=== PATIENT | male | born 2000 | race Caucasian/White ===

== ENCOUNTER 2023-08-30 19:08 | Inpatient (IN) ==
[2023-08-30] MEDS ORDERED: Famotidine IV 10 MG/ML 2 ml VIAL (20 mg) ONE (19:13)
[2023-08-30] MEDS ORDERED: EPINEPHrine Anaphylaxis SYR CERTADOSE SYR KIT ONE (19:13)
[2023-08-30] MEDS ORDERED: NS 0.9% 1000 ml BAG 1,000 ML IV ONE (19:20)
[2023-08-30] MEDS ORDERED: Ondansetron 4 mg VIAL 2 MG/ML 2 ml VIAL IV ONE (19:20)
[2023-08-30] MEDS ORDERED: Al Hydrox/Mg Hydrox/Simet LIQ 30 ML UDC PO ONE (19:50)
[2023-08-30] MEDS ORDERED: Pantoprazole VIAL 40 MG VIAL IV ONE (19:51)
[2023-08-30] MEDS ORDERED: Lorazepam PYXIS KEY PRN (20:21)
[2023-08-30] MEDS ORDERED: Dexamethasone IV 4 MG/ML VIAL 1 ml VIAL IV SLOW PU ONE (20:21)
[2023-08-30] MEDS ORDERED: EPINEPHrine Anaphylaxis SYR CERTADOSE SYR KIT IM ONE (20:21)
[2023-08-30] MEDS: LORazepam 2 mg VIAL 1 ml IV PUSH ONE ×2 (20:35→20:38)
[2023-08-30] MEDS ORDERED: Famotidine IV 10 MG/ML 2 ml VIAL (20 mg) IV SLOW PU ONE (21:30)
[2023-08-30] MEDS ORDERED: Albuterol 2.5mg/3 ml (0.083%) NEB.SOLN INH PRN (21:31)
[2023-08-30 21:51] LABS: ABS Basophils 0.1 10^3/uL (0.0-0.1); ABS Eosinophils 0.3 10^3/uL (0.0-0.5); ABS Lymphocytes 3.4 10^3/uL (1.0-4.8); ABS Monocytes 0.5 10^3/uL (0.0-1.1); ABS Neutrophils 5.6 10^3/uL (1.5-7.6); ABS Nucleated RBC 0.02 10^3/ul; Eosinophil % 3.5 %; Hematocrit 46.2 % (38-53); Hemoglobin 16.1 g/dL (13.2-16.3); Lymphocyte % 34.5 %; Mean Corpuscular Hemoglobin 30.4 pg (27-33); Mean Corpuscular Hgb Conc 34.8 g/dL (31-36); Mean Corpuscular Volume 87.4 fL (80-97); Mean Platelet Volume 10.4 fL (7.5-11.2); Nucleated Red Blood Cells % 0.2 %/100WBC (0.0-0.8); Platelet Count 320 10^3/uL (150-450); Red Blood Count 5.28 10^6/uL (4.06-5.63); Red Cell Distribution Width 12.9 % (12-17)
[2023-08-30 22:22] LABS: Potassium 3.2 mmol/L (3.5-5.0)
[2023-08-30 22:23] LABS: Albumin 5.4 g/dL (3.2-5.2); Albumin/Globulin Ratio 1.5 (1-3); Calcium 10.6 mg/dL (8.6-10.3); Creatinine, Serum 1.02 mg/dL (0.67-1.17); Globulin 3.5 g/dL (2-4); Magnesium 2.1 mg/dL (1.9-2.7); Total Bilirubin 0.8 mg/dL (0.2-1.0); Total Protein 8.9 g/dL (6.4-8.9); eGFR CKD-EPI 107.2 (>60)
[2023-08-30] MEDS ORDERED: Ondansetron ODT 4 mg TAB 4 MG TAB SL PRN (23:35)
[2023-08-31] MEDS ORDERED: Potassium EFFERVES 25 meq TAB PO ONE (07:51)
[2023-08-31 13:10] VITALS: BP 134/87
== END 2023-08-31 11:00 | disposition home or self-care (01) | DRG 811 ==
LOC: ED 19:08 → EDHOLD 21:06 → ICU 22:07
PROVIDERS: ADMIT Surgery Surgical Critical Care; ATTEND Surgery Surgical Critical Care